=== PATIENT | female | born 1980 | race Caucasian/White ===

== ENCOUNTER 2018-06-18 19:34 | Emergency (ER) | payer BC ==
[2018-06-18] MEDS ORDERED: hydrOXYzine HCL 25 MG TABLET (FP) PO ONE ×2 (19:36→19:43)
[2018-06-18] MEDS ORDERED: predniSONE 20 MG TABLET (UD) PO ONE (19:37)
[2018-06-18] MEDS ORDERED: predniSONE 20 MG TABLET (UD) ONE ×2 (19:41→19:43)
[2018-06-18 19:55] VITALS: BP 114/78; PULSE 88; TEMP 97.6; BMI 23.1
--- NOTE | 2018-06-18 19:58 | PDOC ---
Documentation entered by Rhina Angeles SCRIBE, acting as scribe for Genny Rose DO. Genny Rose, DO: This documentation has been prepared by the Karthik ferrara Daisy, SCRIBE, under my direction and personally reviewed by me in its entirety. I confirm that the documentation accurately reflects all work, treatment, procedures, and medical decision making performed by me. History of Present Illness - General Stated Complaint: ALLERGIC REACTION Time Seen by Provider: 06/18/18 19:36 History Source: Patient Exam Limitations: No Limitations - History of Present Illness Initial Comments: 06/18/18 19:45 The patient is a 38 year old female with no PMH who presents with a urticarial rash to the face and chest for the past week. Patient states she noticed it initially under the left eye, and has now spread to both eyes and face. She is complaining of associated itchiness. Patient went to [facility]. Denies any new foods, soaps, or detergents. Currently on control. Surgeries: Spine surgery Social Hx: Drinks socially. Denies cigarette or drug use. Past History - Past Medical History Allergies/Adverse Reactions: Allergies Allergy/AdvReac Type Severity Reaction Status Date / Time No Known Allergies Allergy Verified 06/18/18 19:38 Home Medications: Ambulatory Orders Meloxicam 15 mg PO DAILY #30 tablet 07/30/17 Methylprednisolone [Medrol Dose Tha] 4 mg PO ASDIR #21 tablet 06/18/18 hydrOXYzine HCL [Atarax -] 25 mg PO TID PRN #15 tablet 06/18/18 Review of Systems - Review of Systems Able to Perform ROS?: Yes Comments:: 06/18/18 19:52 ADULT ROS GENERAL/CONSTITUTIONAL: No fever or chills. No weakness. HEAD, EYES, EARS, NOSE AND THROAT: No change in vision. No ear pain or discharge. No sore throat. GASTROINTESTINAL: No nausea, vomiting, diarrhea or constipation. GENITOURINARY: No dysuria, frequency, or change in urination. CARDIOVASCULAR: No chest pain or shortness of breath. RESPIRATORY: No cough, wheezing, or hemoptysis. MUSCULOSKELETAL: No joint or muscle swelling or pain. No neck or back pain. SKIN: (+) urticaria and itchiness. NEUROLOGIC: No headache, vertigo, loss of consciousness, or change in strength/ sensation. ENDOCRINE: No increased thirst. No abnormal weight change. HEMATOLOGIC/LYMPHATIC: No anemia, easy bleeding, or history of blood clots. ALLERGIC/IMMUNOLOGIC: No hives or skin allergy. *Physical Exam - Vital Signs Last Vital Signs Temp Pulse Resp BP Pulse Ox 97.6 F 88 18 114/78 99 06/18/18 19:38 06/18/18 19:38 06/18/18 19:38 06/18/18 19:38 06/18/18 19:38 - Physical Exam Comments: 06/18/18 19:51 ADULT PHYSICAL EXAM Constitutional: Awake, alert, oriented. No acute distress. Eyes: PERRL. EOMI. Conjunctivae are not pale. ENT: Mucous membranes are moist and intact. Posterior pharynx without exudates or erythema. Uvula midline. Cardiovascular: Regular rate. Regular rhythm. S1, S2 regular. Distal pulses are 2+ and symmetric. Pulmonary/Chest: No evidence of respiratory distress. Clear to auscultation bilaterally No wheezing, rales or rhonchi. Abdominal: Soft and non-distended. There is no tenderness. Musculoskeletal: No edema. Full range of motion in all extremities. Skin: (+) Urticaria to the face. Neurological: Cranial nerves II-XII are grossly intact. ED Treatment Course - Medications Given in the ED: ED Medications Discontinued Medications Generic Name Dose Route Start Last Admin Trade Name Freq PRN Reason Stop Dose Admin Hydroxyzine HCl 25 mg 06/18/18 19:36 06/18/18 19:46 Atarax - PO 06/18/18 19:37 25 mg ONCE ONE Administration Prednisone 60 mg 06/18/18 19:37 06/18/18 19:46 Deltasone - PO 06/18/18 19:38 60 mg ONCE ONE Administration Medical Decision Making - Medical Decision Making 06/18/18 19:55 a/p: 38yo female with facial urticaria x 1 week -worse in the AM, improves with aquafore during the day, but spreading and itchy -will give atarax for the itching, will start steroids -pt is currently working and cannot take benadryl -will start medrol dos tha -will need allergy testing -has appt with derm tomorrow *DC/Admit/Observation/Transfer Diagnosis at time of Disposition: Allergic reaction - Discharge Dispostion Disposition: HOME Condition at time of disposition: Stable Decision to Admit order: No - Prescriptions Prescriptions: hydrOXYzine HCL [Atarax -] 25 mg PO TID PRN #15 tablet PRN Reason: Dry Skin Methylprednisolone [Medrol Dose Tha] 4 mg PO ASDIR #21 tablet - Referrals Referrals: Leonid Gómez MD [Staff Physician] - - Patient Instructions Printed Discharge Instructions: DI for General Allergic Reactions - Post Discharge Activity - Attestations Physician Attestion: 06/18/18 19:49 I, Dr. Genny Rose, DO, attest that this document has been prepared under my direction and personally reviewed by me in its entirety. I further attest, that it accurately reflects all work, treatment, procedures and medical decision -making performed by me.
== END 2018-06-18 19:52 | disposition home or self-care (01) ==
LOC: JER 19:34
DX: T78.40XA Allergy, unspecified, initial encounter (principal)
CPT/HCPCS: 99282-25